=== PATIENT | male | born 1955 | race Caucasian/White ===

== ENCOUNTER 2017-12-06 16:58 | Inpatient (IN) | payer OTHER ==
[~2017-12-06] VITALS: Ht 177.8 cm; Wt 86.2 kg
[~2017-12-06 16:58] MED LIST: ASPIRIN325 PO; AUGMENTIN 875875 MG PO; CHARCOAL200 MG; CO-ENZYME Q-1010 MG PO; FISH OIL 1,001000 M2; FLORANEX GRANU1 EACH PO; MEN'S BIOMULTI1 EACH PO; MILK THISTLE150 MG PO; NORCO 5-325 TA1 EACH PO; PEPCID40 MG PO; PRILOSEC40 MG PO; SALMON OIL 1,01 EACH; ZOFRAN ODT4 MG PO
[2017-12-06 16:59] VITALS: BP 145/89
[2017-12-06 19:32] LABS: ABSOLUTE NEUTROPHILS 6.4 thou/uL (1.4-8.2); BASOPHILS 0.4 % (0.0-2.0); HEMOGLOBIN 15.1 gm/dL (14.0-18.0); LYMPHOCYTES 21.5 % (24.0-44.0); MCH 35.9 pg (26.0-34.0); MCHC 35.1 g/dL (28.0-37.0); MCV 102.3 fL (80.0-100.0); MONOCYTES 10.1 % (1.0-8.0); PLATELET COUNT 192 thou/uL (150-400); RDW 12.5 % (10.5-14.5); WBC 9.5 thou/uL (4.0-11.0)
[2017-12-06 19:38] LABS: CALCIUM 9.2 mg/dL (8.5-10.1); CREATININE 0.7 mg/dL (0.7-1.3); POTASSIUM 3.9 mmol/L (3.5-5.1)
[2017-12-06 19:43] LABS: ALBUMIN 3.7 g/dL (3.4-5.0); DIRECT BILIRUBIN 0.2 mg/dL (<0.1-0.3); TOTAL BILIRUBIN 0.7 mg/dL (<0.1-1.0); TOTAL PROTEIN 7.8 g/dL (6.4-8.2)
[2017-12-06 23:47] LABS: MAGNESIUM 1.8 mg/dL (1.8-2.4); PHOSPHORUS 3.9 mg/dL (2.5-4.9)
[2017-12-07 00:15] LABS: FOLIC ACID 5.9 ng/mL (8.6-58.9)
[2017-12-07 05:03] LABS: ALBUMIN 3.2 g/dL (3.4-5.0); CALCIUM 8.3 mg/dL (8.5-10.1); CREATININE 0.8 mg/dL (0.7-1.3); POTASSIUM 3.5 mmol/L (3.5-5.1); TOTAL BILIRUBIN 1.3 mg/dL (<0.1-1.0)
[2017-12-07 11:00] VITALS: BP 136/80
[2017-12-07 11:02] VITALS: BP 137/88
[2017-12-07 13:17] VITALS: BP 136/85
[2017-12-07] MEDS ORDERED: PRILOSEC 20 MG20 MG PO (17:10)
[2017-12-07 20:00] VITALS: BP 147/88
[2017-12-08 06:00] VITALS: BP 137/83
[2017-12-08 07:36] LABS: ABSOLUTE NEUTROPHILS 8.6 thou/uL (1.4-8.2); BASOPHILS 0.5 % (0.0-2.0); EOSINOPHILS 2.2 % (0.0-3.0); HEMATOCRIT 38.8 % (42.0-52.0); HEMOGLOBIN 13.7 gm/dL (14.0-18.0); LYMPHOCYTES 17.3 % (24.0-44.0); MCH 35.9 pg (26.0-34.0); MCHC 35.3 g/dL (28.0-37.0); MCV 101.7 fL (80.0-100.0); MONOCYTES 9.6 % (1.0-8.0); PLATELET COUNT 148 thou/uL (150-400); POLYS 70.4 % (36.0-66.0); RBC 3.81 mil/uL (4.50-6.00); RDW 12.8 % (10.5-14.5); WBC 12.2 thou/uL (4.0-11.0)
[2017-12-08 07:48] LABS: CALCIUM 8.1 mg/dL (8.5-10.1); CREATININE 0.8 mg/dL (0.7-1.3); MAGNESIUM 1.5 mg/dL (1.8-2.4); PHOSPHORUS 2.9 mg/dL (2.5-4.9); POTASSIUM 3.4 mmol/L (3.5-5.1)
[2017-12-08 08:43] VITALS: BP 127/84
[2017-12-08 15:41] VITALS: BP 155/98
[2017-12-08 20:30] VITALS: BP 153/74
[2017-12-09 04:14] VITALS: BP 158/98
[2017-12-09 07:40] VITALS: BP 154/97
[2017-12-09 11:15] LABS: HEMATOCRIT 40.8 % (42.0-52.0); HEMOGLOBIN 14.1 gm/dL (14.0-18.0); MCH 35.4 pg (26.0-34.0); MCHC 34.6 g/dL (28.0-37.0); MCV 102.3 fL (80.0-100.0); PLATELET COUNT 162 thou/uL (150-400); RBC 3.98 mil/uL (4.50-6.00); RDW 12.6 % (10.5-14.5); WBC 11.9 thou/uL (4.0-11.0)
[2017-12-09 11:24] LABS: CALCIUM 8.3 mg/dL (8.5-10.1); CREATININE 0.7 mg/dL (0.7-1.3); POTASSIUM 3.2 mmol/L (3.5-5.1)
[2017-12-09 11:52] LABS: ABSOLUTE NEUTROPHILS 9.2 thou/uL (1.4-8.2)
[2017-12-09] MEDS ORDERED: BACTRIM DS TAB1 EACH PO (12:49)
[2017-12-09] MEDS ORDERED: VITAMIN B-1100 M2 PO (12:50)
[2017-12-09 16:25] VITALS: BP 149/92
[2017-12-09 19:00] VITALS: BP 152/90
[2017-12-10 04:23] VITALS: BP 156/93
[2017-12-10 07:45] VITALS: BP 156/99
[2017-12-10 11:45] VITALS: BP 156/99
[2017-12-10 12:52] VITALS: BP 156/99
[2017-12-10 12:59] VITALS: BP 156/99
[2018-06-19] MEDS ORDERED: CHLORDIAZEPOXID10 MG PO (23:15)
[2018-06-19] MEDS ORDERED: ZOFRAN ODT4 MG PO (23:15)
== END 2017-12-10 13:41 | disposition home or self-care (01) | DRG 872 ==
LOC: ER 16:58 → EROBS 19:51 → 4E 19:51 → ENTRNSPT 12-10 13:07 → EDTRNSPTSTS 12-10 13:09 → 4E 12-10 13:41
PROVIDERS: Emergency Medicine; Family Medicine; Nurse Practitioner Family
DX: A41.9 Sepsis, unspecified organism (principal); L03.116 Cellulitis of left lower limb; F10.239 Alcohol dependence with withdrawal, unspecified; Y90.5 Blood alcohol level of 100-119 mg/100 ml; Z85.828 Personal history of other malignant neoplasm of skin; Z79.899 Other long term (current) drug therapy; Z87.891 Personal history of nicotine dependence
CPT/HCPCS: 10183

== ENCOUNTER 2018-05-17 16:46 | Emergency (ER) | payer OTHER ==
[~2018-05-17 16:46] MED LIST changes: +BACTRIM DS TAB1 EACH PO; +PRILOSEC 20 MG20 MG PO; +VITAMIN B-1100 M2 PO
== END 2018-05-17 22:47 | disposition left against medical advice (07) ==
LOC: ER 16:46
DX: Z53.21 Procedure and treatment not carried out due to patient leaving prior to being seen by health care provider (principal)

== ENCOUNTER 2018-11-02 16:00 | Emergency (ER) | payer OTHER ==
[~2018-11-02] VITALS: Ht 177.8 cm; Wt 81.7 kg
[~2018-11-02 16:00] MED LIST changes: +CHLORDIAZEPOXID10 MG PO
[2018-11-02 16:31] LABS: ABSOLUTE NEUTROPHILS 10.9 thou/uL (1.4-8.2); BASOPHILS 0.3 % (0.0-2.0); EOSINOPHILS 0.1 % (0.0-3.0); HEMOGLOBIN 15.9 gm/dL (14.0-18.0); LYMPHOCYTES 9.5 % (24.0-44.0); MCH 36.8 pg (26.0-34.0); MCHC 35.3 g/dL (28.0-37.0); MCV 104.1 fL (80.0-100.0); MONOCYTES 11.7 % (1.0-8.0); PLATELET COUNT 183 thou/uL (150-400); POLYS 78.4 % (36.0-66.0); RBC 4.33 mil/uL (4.50-6.00); RDW 13.4 % (10.5-14.5); WBC 13.9 thou/uL (4.0-11.0)
[2018-11-02 16:41] LABS: CALCIUM 9.8 mg/dL (8.5-10.1); CREATININE 1.1 mg/dL (0.7-1.3); POTASSIUM 3.5 mmol/L (3.5-5.1)
[2018-11-02 16:47] LABS: ALBUMIN 4.2 g/dL (3.4-5.0); TOTAL PROTEIN 8.5 g/dL (6.4-8.2)
[2018-11-02] MEDS ORDERED: CENTRUM SILVER1 EAC2 PO (17:02)
[2018-11-02] MEDS ORDERED: PHENERGAN 25 MG25 M1 PO (17:42)
[2018-11-02] MEDS ORDERED: CHLORDIAZEPOXID25 M1 PO (17:42)
[2018-11-02 18:26] VITALS: BP 123/90
== END 2018-11-02 18:27 | disposition home or self-care (01) ==
LOC: ER 16:00
PROVIDERS: Physician Assistant
DX: F10.239 Alcohol dependence with withdrawal, unspecified (principal); R11.2 Nausea with vomiting, unspecified; Z87.891 Personal history of nicotine dependence; Z91.048 Other nonmedicinal substance allergy status; Z85.828 Personal history of other malignant neoplasm of skin; Y90.0 Blood alcohol level of less than 20 mg/100 ml